=== PATIENT | female | born 1940 | race Caucasian/White ===

== ENCOUNTER 2019-01-22 18:56 | Emergency (ER) | payer BC, MEDICARE ==
--- NOTE | 2019-01-22 19:20 | Emergency Department Record ---
History of Present Illness - General Chief Complaint: Difficulty Breathing Stated Complaint: GRISEL,RETAINING WATER Time Seen by Provider: 01/22/19 19:07 Source: Patient, Family () - History of Present Illness Initial Comments: The patient has had CHF symptoms since September of this year which has gradually been increasing. She is swelling more in her lower extremities and even up into her abdomen. She takes only herbal medicines, and has no PCP. She uses CPAP at night. She and her live in [facility], but are camping in their camper the past 2 days. During this time her breathing has worsened to the point she decided to be seen for it. She is short of breath but denies chest pain or pre ssure. She states that she was hospitalized in 2009 in [place] for cellulitis and needed 6 weeks of vancomycin. MD Complaint: Shortness of breath - Related Data Home Medications Medication Instructions Recorded Confirmed Last Taken No Home Med [NO HOME MEDS] 01/22/19 01/22/19 Unknown Allergies Allergy/AdvReac Type Severity Reaction Status Date / Time cefaclor [From Ceclor] Allergy RASH Verified 01/22/19 19:17 Penicillins Allergy PT UNSURE Verified 01/22/19 19:17 OF REACTION Review of Systems Reviewed: No additional complaints except as noted below Constitutional: Reports: As per HPI. Denies: Chills, Fever, Malaise, Night sweats, Weakness, Weight change Eyes: Reports: As per HPI. Denies: Eye discharge, Eye pain, Photophobia, Vision change ENT: Reports: As per HPI. Denies: Congestion, Dental pain, Ear pain, Epistaxis, Hearing loss, Throat pain Respiratory: Reports: As per HPI. Denies: Cough, Dyspnea, Hemoptysis, Stridor, Wheezes Cardiovascular: Reports: As per HPI. Denies: Arrhythmia, Chest pain, Dyspnea on exertion, Edema, Murmurs, Orthopnea, Palpitations, Paroxysmal nocturnal dyspnea, Rheumatic Fever, Syncope Endocrine: Reports: As per HPI. Denies: Fatigue, Heat or cold intolerance, Polydipsia, Polyuria Gastrointestinal: Reports: As per HPI. Denies: Abdominal pain, Constipation, Diarrhea, Hematemesis, Hematochezia, Melena, Nausea, Vomiting Genitourinary: Reports: As per HPI. Denies: Abnormal menses, Discharge, Dyspareunia, Dysuria, Frequency, Hematuria, Incontinence, Retention, Urgency Musculoskeletal: Reports: As per HPI. Denies: Arthralgia, Back pain, Gout, Joint swelling, Myalgia, Neck pain Skin: Reports: As per HPI. Denies: Bruising, Change in color, Change in hair/nails, Lesions, Pruritus, Rash Neurological: Reports: As per HPI. Denies: Abnormal gait, Confusion, Headache, Numbness, Paresthesias, Seizure, Tingling, Tremors, Vertigo, Weakness Psychiatric: Reports: As per HPI. Denies: Anxiety, Auditory hallucinations, Depression, Homicidal thoughts, Suicidal thoughts, Visual hallucinations Hematological/Lymphatic: Reports: As per HPI. Denies: Anemia, Blood Clots, Easy bleeding, Easy bruising, Swollen glands Physical Exam - General General Appearance: Alert, Oriented x3, Cooperative, Moderate distress (speaks full sentences breathlessly with tachycardia and hypoxia upon arrival to the edept.) - Head Head exam: Normal inspection - Eye Eye exam: Normal appearance, PERRL, EOMI. negative: Conjunctival injection, N ystagmus Pupils: Normal accommodation - ENT ENT exam: Normal exam, Normal external ear exam, TM's normal bilaterally, Other (unable to perform oral exam due to bipap in place) Ear exam: Normal external inspection. negative: External canal tenderness Nasal Exam: Normal inspection. negative: Discharge, Sinus tenderness Mouth exam: Normal external inspection, Tongue normal Teeth exam: Normal inspection. negative: Dental caries Throat exam: Normal inspection. negative: Tonsillar erythema, Tonsillar exudate - Neck Neck exam: Normal inspection, Full ROM, Other (JVD sitting upright). negative: Lymphadenopathy, Meningismus, Tenderness - Respiratory Respiratory exam: Accessory muscle use, Decreased breath sounds, Rales (all lung haskins). negative: Respiratory distress, Rhonchi, Stridor, Wheezes - Cardiovascular Cardiovascular Exam: Normal rhythm, Normal heart sounds, Tachycardia - GI/Abdominal GI/Abdominal exam: Soft, Normal bowel sounds. negative: Tenderness - Rectal Rectal exam: Deferred - exam: Deferred - Extremities Extremities exam: Normal inspection, Full ROM, Normal capillary refill, Pedal edema (tight anasarca to bilateral lower extremities with chronic vascular changes and chronic erythema bilaterally.) - Back Back exam: Reports: Normal inspection, Full ROM. Denies: Muscle spasm, Rash noted, Tenderness - Neurological Neurological exam: Alert, Normal gait, Oriented X3, Reflexes normal - Psychiatric Psychiatric exam: Normal affect, Normal mood - Skin Skin exam: Dry, Intact, Normal color, Warm Course - Reevaluation(s) Reevaluation #1: Patient states that she does not recall ever being told she has atrial fibrillation in the past. She states she is improving and feeling better since the bipap. Discussed with Dr. Mary at [facility] who accepts patient in transfer. Pulse is 132, biox 97% 28% bipap. Awaiting transfer. Heparin bolus and drip begun. Portable CXR shows marked cardiomegally, CHF/pulmonmary edema; marked elevation of right hemidiaphragm, left upper pneumonitis/ mass with recommended follow up for this per radiologist. 01/22/19 20:11 01/22/19 20:21 Reevaluation #2: Patient requested transfer to [facility]. Discussed plan of transfer and care and patient and in agreement with transfer and plan. 01/22/19 20:29 01/22/19 20:35 Medical Decision Making - Management Options MDM Management: Additional Work-up Planned (e.g. ADM/Transfer/OP Study) (Transfer to [facility] ICU to Dr. Mary) - Data Complexity MDM Data: Labs Ordered and/or Reviewed (D dimer 19.5, Patient unable to undergo CTA due to bipap, Dr. Mary aware and will follow workup), X-Ray Ordered and/or Reviewed (CXR portable sent with pateint on disc), EKG Ordered and/or Reviewed (EKG [place] fibrillation at 143 rate irregularly iregular, low voltage all leads. No prior for comparison) - Lab Data Result diagrams: 01/22/19 19:20 01/22/19 19:20 Disposition Disposition: Transfer Clinical Impression: Hypoxia CHF (congestive heart failure) Qualifiers: Heart failure type: unspecified Heart failure chronicity: unspecified Qualified Code(s): I50.9 - Heart failure, unspecified Atrial fibrillation Qualifiers: Atrial fibrillation type: unspecified Qualified Code(s): I48.91 - Unspecified atrial fibrillation Disposition: Acute Care Hospital Transfer Decision to Admit: Admit from ER Decision to Admit Date: 01/22/19 Transfer To: [facility] Reason For Transfer: Critical care Accepting Physician: Dr. Usman Time Discussed w/Accepting Physician: 20:29 Condition: (3) Guarded Forms: Patient Portal Access Quality - Quality Measures Quality Measures: N/A - Blood Pressure Screening Does Patient Have Any of the Following: No Blood Pressure Classification: Pre-Hypertensive BP Reading Systolic Measurement: 125 Diastolic Measurement: 89 Screening for High Blood Pressure: < Normal BP, F/U Not Required > [G8711]
[2019-01-22 19:24] LABS: HEMATOCRIT 42.9 % (35.0-47.0); HEMOGLOBIN 14.5 gm/dl (11.6-16.0); MEAN CELL VOLUME 103.4 fl (81-97); MEAN CORPUSCULAR HEMOGLOBIN 34.9 pg (27-33); MEAN CORPUSCULAR HGB CONC 33.8 g/dl (32-36); MEAN PLATELET VOLUME 8.5 fl (7.4-10.4); PLATELET COUNT 159 K/uL (130-400); RED BLOOD COUNT 4.15 M/uL (3.80-5.40); RED CELL DISTRIBUTION WIDTH 16.7 % (11.5-14.5); WHITE BLOOD COUNT W/O DIFF 7.4 K/uL (4.2-12.2)
[2019-01-22 19:38] LABS: BLOOD UREA NITROGEN 9 mg/dL (8-23); CREATININE 0.5 mg/dL (0.5-0.9); EST GLOMERULAR FILTRATION RATE > 60 mL/min; TOTAL PROTEIN 7.6 g/dL (6.6-8.7)
[2019-01-22 19:40] LABS: GLUCOSE,RANDOM 117 mg/dL (74-109)
[2019-01-22 19:43] LABS: ALB/GLOB RATIO 0.6 (1.1-1.8); ALBUMIN 2.9 g/dL (4.0-5.0); ALKALINE PHOSPHATASE 90 U/L (35-104); ALT/SGPT 16 U/L (<33); AST/SGOT 38 U/L (10.0-35.0)
[2019-01-22 19:46] LABS: INR 1.3; PARTIAL THROMBOPLASTIN TIME 28.2 SECONDS (24.5-39.1); PROTHROMBIN TIME (PATIENT) 13.5 SECONDS (9.5-12.1)
[2019-01-22] MEDS ORDERED: FUROSEMIDE IV 40MG/4ML VIAL IVP ONE (19:49)
[2019-01-22] MEDS ORDERED: MORPHINE SULFATE 10MG/1ML **1ML VIAL IVP ONE (19:50)
[2019-01-22] MEDS ORDERED: ALBUTEROL (0.5% CONCENTRATED) 2.5 MG/0.5 ML VIAL.NEB INH ONE (19:52)
[2019-01-22] MEDS ORDERED: IPRATROPIUM/ALBUTEROL (0.5MG/3MG) NEB INH ONE (19:52)
[2019-01-22 19:53] LABS: URINE APPEARANCE CLEAR; URINE BILIRUBIN MODERATE (NEGATIVE); URINE BLOOD NEGATIVE (NEGATIVE); URINE GLUCOSE (UA) NEGATIVE (NEGATIVE); URINE KETONE TRACE (NEGATIVE); URINE LEUKOCYTE ESTERASE NEGATIVE (NEGATIVE); URINE PROTEIN NEGATIVE (NEGATIVE)
[2019-01-22 20:03] LABS: URINE COLOR DARK YELLOW
[2019-01-22 20:04] LABS: URINE EPITHELIAL CELLS 0 - 2 (FEW); URINE MUCUS LIGHT; URINE RBC NONE SEEN (NONE SEEN); URINE WBC 0 - 2 (0-2/hpf)
[2019-01-22] MEDS ORDERED: HEPARIN SODIUM 1000 UNIT/1 ML 10ML VIAL IVP ONE ×2 (20:15→20:30)
[2019-01-22] MEDS ORDERED: HEPARIN SODIUM 5,000 UNIT/ML VIAL IVP ONE (20:20)
[2019-01-22] MEDS ORDERED: HEPARIN SODIUM/D5W 25,000 UNITS/500 ML BAG IV SCH (20:30)
--- NOTE | 2019-01-25 10:38 | RADIOLOGY REPORT ---
STUDY: Portable. CLINICAL HISTORY: CHF, difficulty breathing, edema. TECHNIQUE: AP portable, chest. COMPARISON: None. FINDINGS: Cardiomegaly, pulmonary venous hypertension, interstitial blurring. Findings suggest CHF/pulmonary edema, more focal, confluent opacity, left midlung. This may just be some more focal pulmonary edema, but pneumonitis or even mass could not be excluded. Follow-up films are suggested to be certain this clears. There also appears to be marked elevation of the right hemidiaphragm. Study limited by lack of lateral view but, as visualized, no definite pleural effusion seen and no pneumothorax evident. Mild midthoracic curve to the right. IMPRESSION: 1. Cardiomegaly with additional findings suggesting CHF/pulmonary edema. 2. More focal consolidation, left midlung, nonspecific as described above. 3. Marked elevation, right hemidiaphragm. 4. Follow-up films suggested. MTDD
== END 2019-01-22 22:16 | disposition short-term general hospital (02) ==
LOC: ER 18:56
DX: R09.02 Hypoxemia (principal); J18.1 Lobar pneumonia, unspecified organism; I50.9 Heart failure, unspecified; I48.91 Unspecified atrial fibrillation; R79.89 Other specified abnormal findings of blood chemistry; R91.8 Other nonspecific abnormal finding of lung field
CPT/HCPCS: 51702; 99285 ×2; 96374; 96375; 85730; 85610; 80053; 81001; 84484; 85379; 85027; 83880; 71045; 94640; 94660; 93005; 93010; J2270; J1940